=== PATIENT | female | born 1970 | race Caucasian/White ===

== ENCOUNTER 2021-10-22 17:00 | Emergency (ER) | payer OTHER, SELFPAY ==
[2021-10-22 17:16] VITALS: BP 169/79; PULSE 81; RESP 22; TEMP 36.4; O2SAT 98
[2021-10-22 17:35] LABS: Add Manual Diff / Slide Review NO; Basophils Absolute Auto 0 /uL (0-100); Basophils Percent Auto 0.4 % (0-2); Eosinophils Absolute Auto 100 /uL (0-450); Eosinophils Percent Auto 0.9 % (2-4); Hematocrit 39.9 % (36-46); Hemoglobin 13.4 g/dL (12.0-16.0); Lymphocytes Absolute Auto 1400 /uL (1100-4500); Lymphocytes Percent Auto 18.7 % (25-40); Mean Corpuscular HGB Conc 33.6 % (30-36); Mean Corpuscular Hemoglobin 28.8 PG (26-34); Mean Corpuscular Volume 85.7 fL (80-100); Monocytes Absolute Auto 600 /uL (0-900); Monocytes Percent Auto 8.1 % (3-14); Neutrophils Absolute Auto 5400 /uL (1500-7000); Neutrophils Percent Auto 71.9 % (50-75); Platelet Count 342 X10^3/uL (150-400); Red Blood Cell Count 4.65 X10^6/uL (4.0-5.2); Red Cell Distribution Width 14.2 % (11.6-14.8); White Blood Cell Count 7.5 X10^3/uL (4.5-11.0)
[2021-10-22 17:44] LABS: Alanine Aminotransferase 22 IU/L (<35); Albumin 4.2 g/dL (3.5-5.0); Albumin Globulin Ratio 1.2 (1.0-2.8); Alkaline Phosphatase 63 U/L (38-126); Aspartate Aminotransferase 31 IU/L (14-36); BUN Creatinine Ratio 17.4 (6-22); Blood Urea Nitrogen 15 mg/dL (7-17); Calcium 9.6 mg/dL (8.4-10.2); Carbon Dioxide 27 mmol/L (22-32); Chloride 106 mmol/L (98-107); Estimated Glomerular Filt Rate > 60.0 mL/min (>60); Globulin 3.4 g/dL (1.7-4.1); Glucose 97 mg/dL (70-100); HEMOLYSIS < 15 (0-50); Lipase 235 U/L (23-300); Potassium 3.6 mmol/L (3.4-5.1); Sodium 137 mmol/L (137-145); Total Protein 7.6 g/dL (6.3-8.2)
[2021-10-22 19:56] VITALS: BP 155/86; PULSE 78; RESP 16; O2SAT 95
--- NOTE | 2021-10-22 20:08 | ED.GENADULT ---
HPI - General Adult General Chief complaint: Abdominal Pain Stated complaint: RT LOWER PAIN Time Seen by Provider: 10/22/21 20:04 Source: patient Mode of arrival: Ambulatory History of Present Illness HPI narrative: 51-year-old female who was here for evaluation of abdominal discomfort and diarrhea. She states she has had several episodes of this over the past several weeks. Current episode started within the past couple days. He has also had diarrhea which does not change the abdominal discomfort. Some nausea but no vomiting. No urinary symptoms. No vaginal bleeding. She does states she is perimenopausal and this has been somewhat no regular for her. No prior abdominal surgeries. Has not had a colonoscopy. Has not tried anything for the symptoms prior to arrival. Was sent to the emergency department for the walk-in clinic for further evaluation. Related Data Previous Rx's Medication Instructions Recorded dicyclomine 10 mg capsule 10 mg PO TID #21 cap 10/22/21 Allergies Allergy/AdvReac Type Severity Reaction Status Date / Time bupivacaine Allergy Verified 10/22/21 17:25 latex Allergy Verified 10/22/21 17:25 Penicillins Allergy Verified 10/22/21 17:25 PPD Allergy Uncoded 10/22/21 17:25 Review of Systems Constitutional Constitutional: Denies fever(s) Cardiovascular Cardiovascular: Reports system reviewed and no additional complaints, except as documented Respiratory Respiratory: Reports system reviewed and no additional complaints, except as documented Gastrointestinal Gastrointestinal: Reports as per HPI and Reports system reviewed and no additional complaints, except as documented Genitourinary Genitourinary: Reports system reviewed and no additional complaints, except as documented Hematologic/Lymphatic On Anticoagulants: No Patient History Social History lives independently: Yes Exam Initial Vital Signs Initial Vital Signs: Vital Signs Temperature 97.6 F 10/22/21 17:16 Pulse Rate 81 10/22/21 17:16 Respiratory Rate 22 10/22/21 17:16 Blood Pressure 169/79 H 10/22/21 17:16 Pulse Oximetry 98 10/22/21 17:16 Const General: cooperative and healthy appearing [facility] Head: normal to inspection and normocephalic Resp Effort & Inspection: normal respiratory effort Cardio Rate: regular rate GI Inspection: normal to inspection and non-distended Palpation: soft, No firm and tender (Diffuse) Skin General: no rashes or lesions noted Neuro General: patient alert, patient awake and moves all extremities Extrem General: normal to inspection Psych Appearance: grossly normal and well kempt Course Orders Ordered: ED Orders 10/22/21 19:51 Urine Culture Stat Urine Microscopic Stat 10/22/21 20:09 CT abdomen pelvis w con Stat Vital Signs Vital signs: Vital Signs - 8 hr 10/22/21 19:56 Pulse Rate 78 Respiratory Rate 16 Blood Pressure 155/86 H Pulse Oximetry 95 Medical Decision Making Lab Data Lab results reviewed: Yes I reviewed the patient's lab results. Result diagrams: 10/22/21 17:26 10/22/21 17:26 Labs: Lab Results 10/22/21 10/22/21 10/22/21 Range/Units 17:26 17:26 19:51 WBC 7.5 (4.5-11.0) X10^3/uL RBC 4.65 (4.0-5.2) X10^6/uL Hgb 13.4 (12.0-16.0) g/dL Hct 39.9 (36-46) % MCV 85.7 (80-100) fL MCH 28.8 (26-34) PG MCHC 33.6 (30-36) % RDW 14.2 (11.6-14.8) % Plt Count 342 (150-400) X10^3/uL Neut % (Auto) 71.9 (50-75) % Lymph % (Auto) 18.7 L (25-40) % Cherry % (Auto) 8.1 (3-14) % Eos % (Auto) 0.9 L (2-4) % Baso % (Auto) 0.4 (0-2) % Neut # (Auto) 5400 (1720-1078) /uL Lymph # (Auto) 1400 (5572-9278) /uL Cherry # (Auto) 600 (0-900) /uL Eos # (Auto) 100 (0-450) /uL Baso # (Auto) 0 (0-100) /uL Sodium 137 (137-145) mmol/L Potassium 3.6 (3.4-5.1) mmol/L Chloride 106 (98-107) mmol/L Carbon Dioxide 27 (22-32) mmol/L BUN 15 (7-17) mg/dL Creatinine 0.86 (0.52-1.04) mg/dL Estimated GFR > 60.0 (>60) mL/min BUN/Creatinine Ratio 17.4 (6-22) Glucose 97 (70-100) mg/dL Calcium 9.6 (8.4-10.2) mg/dL Total Bilirubin 1.0 (0.2-1.3) mg/dL AST 31 (14-36) IU/L ALT 22 (<35) IU/L Alkaline Phosphatase 63 (38-126) U/L Total Protein 7.6 (6.3-8.2) g/dL Albumin 4.2 (3.5-5.0) g/dL Globulin 3.4 (1.7-4.1) g/dL Albumin/Globulin Ratio 1.2 (1.0-2.8) Lipase 235 (23-300) U/L Urine RBC 1-5/hpf (0-5/HPF) Urine WBC 0-1/hpf (0-5/HPF) Ur Squamous Epith Cells 0-1 /hpf (0-5/HPF) Calcium Oxalate Crystal Moderate H Amorphous Sediment 1+ Urine Bacteria Occasional (0-1) (None) Urine Mucus 2+ H (Negative) Ur Culture Indicated? Culture not indicate Point of Care Testing Test Results Negative Urine Dip Bedside Urine Glucose Negative Bedside Urine Bilirubin - Negative Bedside Urine Ketone - Negative Urine Specific [place] 1.030 Bedside Urine Occult Blood +/- Bedside Urine pH 5.5 Bedside Urine Protein - Negative Bedside Urine Urobilinogen - Negative Bedside Urine Nitrite - Negative Bedside Urine Leukocytes - Negative Esterase Point of care testing: Point of Care Testing Test Results Negative Urine Dip Bedside Urine Glucose Negative Bedside Urine Bilirubin - Negative Bedside Urine Ketone - Negative Urine Specific [place] 1.030 Bedside Urine Occult Blood +/- Bedside Urine pH 5.5 Bedside Urine Protein - Negative Bedside Urine Urobilinogen - Negative Bedside Urine Nitrite - Negative Bedside Urine Leukocytes - Negative Esterase Imaging Data CT scan - abdomen/pelvis: Radiologist's Impression: [address] [address] [address] Scan Report Signed Patient: Emily Pan MR#: [id number] : 1970 Acct:[id number] Age/Sex: 51 / F Date of Service: 10/22/21 Loc: ED Accession Number: [id number] ?? Procedure: CT abdomen pelvis w con Ordering Provider: Griffin Hanna D.O. PROCEDURE:? CT ABDOMEN PELVIS W CON ? INDICATIONS:? generalized/RLQ abd pain ? TECHNIQUE:? After the administration of IV contrast, axial sections were acquired from the lung bases to the pubic symphysis.? Coronal and sagittal reformats were performed.? For radiation dose reduction, the following was used:? automated exposure control, adjustment of mA and/or kV according to patient size. ? COMPARISON:? None. ? FINDINGS:? Image quality:? Excellent.? ? Lung bases:? Unremarkable.? ? Heart:? No significant findings. ? ? ABDOMEN: Liver:? Ill-defined enhancing focus in the medial inferior right lobe of the liver measuring 2.1 cm, (12/21).? ? Gallbladder:? Unremarkable.? ? Biliary ducts:? Unremarkable.? ? Pancreas:? Unremarkable.? ? Spleen:? Small cysts or hemangioma in the superior pole of the spleen.? Small splenule.? Adrenal Glands:? No nodule.? ? Kidneys and Ureters:? No hydronephrosis.? ? ? Stomach and Bowel:? Stomach, small bowel loops, and colon are unremarkable.? Normal appendix.? Peritoneum:? No abnormal intraperitoneal fluid.? No free air.? ? Ventral Wall: ? Small umbilical hernia. Abdominal Nodes:? No retroperitoneal or mesenteric adenopathy by size criteria.? Vessels:? Aorta and inferior vena cava are normal in size.? Circumaortic left renal vein. ? ? PELVIS: Pelvic Organs:? Right ovarian cyst measuring 3.2 cm.? Left ovarian cyst measuring 2.1 cm. ?The ovaries are located higher in the pelvis.? Multiple uterine fibroids. ? ? Bladder:? Unremarkable.? ? Pelvic Nodes: No enlarged lymph nodes.? Miscellaneous: No inguinal hernias are seen. ? ? ? Bones:? Small sclerotic foci L2 and left and right iliac are likely bone islands. ? ? IMPRESSION:? 1. The appendix appears normal.? No small bowel obstruction.? No free fluid.? Fat containing umbilical hernia. ? 2. Small bilateral ovarian cysts.? These could be a source of pain.? Multiple uterine fibroids.? This could be further evaluated with pelvic ultrasound. ? 3. Enhancing focus in the right lobe of the liver measuring 2.1 cm.? This most likely represents a benign neoplasm such as adenoma or hemangioma or FNH.? -This could be further characterized with liver MRI with IV contrast.? ? Dictated by: Washington Holloway M.D. on 10/22/2021 at 21:06 ? ? Approved by: Washington Holloway M.D. on 10/22/2021 at 21:15?? MDM Narrative Medical decision making narrative: Labs unremarkable, urine shows no signs infection, CT scan shows no signs of acute pathology. No indication for surgical consultation. No indication for antibiotics. Will discharge home with instructions to follow-up with a primary provider to discuss the indications for referral to see Gastroenterology. She was given return precautions. Discharge Plan Departure Patient Disposition: Home Clinical Impression: Abdominal pain Instructions: DI for Abdominal Pain-Adult Activity Restrictions/Additional Instructions: I recommend that you contact either the [facility] at [phone]. You can also call the [facility] at [phone] to establish care with a primary provider and also follow-up. You will most likely need a referral to see Gastroenterology. Return to the emergency department for any new or worsening symptoms. Prescriptions: New dicyclomine 10 mg capsule 10 mg PO TID Qty: 21 0RF
--- NOTE | 2021-10-22 20:09 | DI.CT.S_ITS ---
PROCEDURE: CT ABDOMEN PELVIS W CON INDICATIONS: generalized/RLQ abd pain TECHNIQUE: After the administration of IV contrast, axial sections were acquired from the lung bases to the pubic symphysis. Coronal and sagittal reformats were performed. For radiation dose reduction, the following was used: automated exposure control, adjustment of mA and/or kV according to patient size. COMPARISON: None. FINDINGS: Image quality: Excellent. Lung bases: Unremarkable. Heart: No significant findings. ABDOMEN: Liver: Ill-defined enhancing focus in the medial inferior right lobe of the liver measuring 2.1 cm, (2/25). Gallbladder: Unremarkable. Biliary ducts: Unremarkable. Pancreas: Unremarkable. Spleen: Small cysts or hemangioma in the superior pole of the spleen. Small splenule. Adrenal Glands: No nodule. Kidneys and Ureters: No hydronephrosis. Stomach and Bowel: Stomach, small bowel loops, and colon are unremarkable. Normal appendix. Peritoneum: No abnormal intraperitoneal fluid. No free air. Ventral Wall: Small umbilical hernia. Abdominal Nodes: No retroperitoneal or mesenteric adenopathy by size criteria. Vessels: Aorta and inferior vena cava are normal in size. Circumaortic left renal vein. PELVIS: Pelvic Organs: Right ovarian cyst measuring 3.2 cm. Left ovarian cyst measuring 2.1 cm. The ovaries are located higher in the pelvis. Multiple uterine fibroids. Bladder: Unremarkable. Pelvic Nodes: No enlarged lymph nodes. Miscellaneous: No inguinal hernias are seen. Bones: Small sclerotic foci L2 and left and right iliac are likely bone islands. IMPRESSION: 1. The appendix appears normal. No small bowel obstruction. No free fluid. Fat containing umbilical hernia. 2. Small bilateral ovarian cysts. These could be a source of pain. Multiple uterine fibroids. This could be further evaluated with pelvic ultrasound. 3. Enhancing focus in the right lobe of the liver measuring 2.1 cm. This most likely represents a benign neoplasm such as adenoma or hemangioma or FNH. -This could be further characterized with liver MRI with IV contrast. Dictated by: Washington Holloway M.D. on 10/22/2021 at 21:06 Approved by: Washington Holloway M.D. on 10/22/2021 at 21:15
[2021-10-22 20:17] LABS: RBC Urine 1-5/HPF (0-5/HPF); WBC Urine 0-1/HPF (0-5/HPF)
[2021-10-22 20:18] LABS: Amorphous Sediment Urine 1+; Bacteria Urine Occasional (0-1); Calcium Oxalate Crystals Urine Moderate; Mucus Urine 2+ (Negative); Squamous Epithelial Cell Urine 0-1 /HPF (0-5/HPF)
== END 2021-10-22 22:07 | disposition home or self-care (01) ==
PROVIDERS: Emergency Medicine; Emergency Provider Emergency Medicine
DX: R10.9 Unspecified abdominal pain (principal); R19.7 Diarrhea, unspecified; R11.0 Nausea
CPT/HCPCS: 36415; 74177; 80053; 81003; 81015; 81025; 83690; 85025; 87086; 99284; Q9967